=== PATIENT | male | born 2000 | race Hispanic/Latino ===

== ENCOUNTER 2021-03-03 17:31 | Emergency (ER) | payer OTHER ==
[2021-03-03] MEDS ORDERED: Acetaminophen 500 MG TAB ONE (18:50)
[2021-03-03] MEDS ORDERED: Ondansetron ODT 4 MG TAB ONE (18:50)
== END 2021-03-03 19:35 | disposition home or self-care (01) ==
LOC: CSHERS 17:31
DX: K52.9 Noninfective gastroenteritis and colitis, unspecified (principal)
CPT/HCPCS: 99283; Q0162